=== PATIENT | female | born 1995 | race Caucasian/White ===

== ENCOUNTER 2021-01-04 17:57 | Emergency (ER) | payer OTHER ==
[~2021-01-04] VITALS: Ht 167.6 cm; Wt 80.7 kg
[2021-01-04 18:06] VITALS: BP 117/75
--- NOTE | 2021-01-04 18:10 | NUR ---
PT TAKEN TO LOBBY IN W/C.
--- NOTE | 2021-01-04 18:12 | NUR ---
CHRISTIAN WINSLOW WITH PT FOR FURTHER EVALUATION.
--- NOTE | 2021-01-04 18:14 | NUR ---
25 Y/O FEMALE C/O LEFT ANKLE PAIN 8/10 S/P FALLING EARLIER TODAY. PT DENIES N/V, DENIES FEVER/CHILLS. PT STATES SHE IS 22WEEKS AND OBGYN REFERRED HER TO ER TO BE SEEN. LMP 08/05/20, LITO 05/10/21. [id number]. DENIES PMH NKA
--- NOTE | 2021-01-04 18:19 | NUR ---
PT TAKEN TO XR VIA W/C.
--- NOTE | 2021-01-04 18:31 | NUR ---
PT TAKEN TO [facility] OLIVAREZ VIA W/C.
[2021-01-04] MEDS ORDERED: ACET-10509 PO (19:04)
[2021-01-04 19:36] VITALS: BP 117/75
--- NOTE | 2021-01-04 19:37 | NUR ---
Patient discharged with v/s stable. Written and verbal after care instructions given and explained. Patient verbalized understanding. Ambulatory with steady gait. All questions addressed prior to discharge. Advised to follow up with PMD.
== END 2021-01-04 19:37 | disposition home or self-care (01) ==
LOC: MED 17:57
DX: O9A.212 Injury, poisoning and certain other consequences of external causes complicating pregnancy, second trimester (principal); S93.402A Sprain of unspecified ligament of left ankle, initial encounter; Z3A.22 22 weeks gestation of pregnancy; Z79.899 Other long term (current) drug therapy; W18.39XA Other fall on same level, initial encounter; Y92.89 Other specified places as the place of occurrence of the external cause; Y93.89 Activity, other specified; Y99.8 Other external cause status
CPT/HCPCS: 73610; 99283